=== PATIENT | female | born 1995 | race Caucasian/White ===

== ENCOUNTER 2018-06-11 16:12 | Emergency (ER) | payer OTHER, SELFPAY ==
[2018-06-11] MEDS ORDERED: Bacitracin Zinc 1 Packet ONE (16:48)
== END 2018-06-11 16:55 | disposition home or self-care (01) ==
LOC: MADERS 16:12
DX: L03.114 Cellulitis of left upper limb (principal)
CPT/HCPCS: 99283

== ENCOUNTER 2019-02-03 12:49 | Emergency (ER) | payer SELFPAY ==
--- NOTE | 2019-02-03 13:23 | RAD ---
Exam:3 views right hand HISTORY: Pain. Injury. COMPARISON: None FINDINGS: Oblique fracture with mild displacement involving the distal fifth metacarpal. Associated s oft tissue swelling and foreshortening. No additional fractures IMPRESSION: Fracture involving the distal fifth metacarpal.
== END 2019-02-03 14:20 | disposition home or self-care (01) ==
LOC: MADERS 12:49
DX: S62.366A Nondisplaced fracture of neck of fifth metacarpal bone, right hand, initial encounter for closed fracture (principal); W22.8XXA Striking against or struck by other objects, initial encounter
CPT/HCPCS: 29125

== ENCOUNTER 2019-10-19 13:41 | Outpatient (CLI) | payer OTHER ==
--- NOTE | 2019-10-19 14:07 | RAD ---
EXAM: XR Lumbar Spine 2 Or 3 View PROVIDED CLINICAL HISTORY: Chronic low back pain without history of trauma. COMPARISON: None FINDINGS: 5 nonrib-bearing lumbar-type vertebral bodies are seen. There is straightening of the normal lumbar c urvature. Vertebral body heights and intervertebral disc spaces are within normal limits. No fracture or subluxation is appreciated. IMPRESSION: Straightening of normal lumbar curvature, but no acute osseous abnormality is seen involving the lumb ar spine.
== END 2019-10-19 13:42 | disposition home or self-care (01) ==
LOC: MADRAD 13:41
PROVIDERS: ATTEND Physician Assistant
DX: R20.2 Paresthesia of skin (principal)
CPT/HCPCS: 72100

== ENCOUNTER 2019-10-25 14:09 | Emergency (ER) | payer SELFPAY | END 2019-10-25 15:38 | disposition home or self-care (01) | LOC: MADERS 14:09 | DX: S51.811A Laceration without foreign body of right forearm, initial encounter (principal); W26.8XXA Contact with other sharp object(s), not elsewhere classified, initial encounter | CPT/HCPCS: 12002 ==